=== PATIENT | male | born 1985 | race African-American/Black ===

== ENCOUNTER 2022-03-26 19:10 | Emergency (ER) | payer OTHER ==
[~2022-03-26] VITALS: Ht 180.3 cm; Wt 113.1 kg
[2022-03-26 22:00] LABS: BASO % 0.4 % (0.0-1.0); EOS # 0.3 10^3/uL (0.0-0.5); EOS % 2.8 % (0.0-3.0); LYMPH # 2.9 10^3/uL (1.5-5.0); LYMPH % 32.1 % (24.0-44.0); MEAN CORPUSCULAR HGB CONC 33.3 g/dl (32.0-36.5); MEAN CORPUSCULAR VOLUME 84.1 fl (80.0-96.0); MONO # 0.9 10^3/uL (0.0-0.8); MONO % 9.6 % (2.0-8.0); NEUTROPHILS # 4.9 10^3/uL (1.5-8.5); NEUTROPHILS % 54.5 % (36.0-66.0); PLATELET COUNT, AUTOMATED 269 10^3/uL (150-450); RED BLOOD COUNT 5.35 10^6/uL (4.30-6.10); WHITE BLOOD COUNT 8.9 10^3/uL (4.0-10.0)
[2022-03-26 22:20] LABS: BLOOD UREA NITROGEN 11 MG/DL (7-18); CALCIUM LEVEL 8.9 MG/DL (8.5-10.1); CARBON DIOXIDE LEVEL 28 MEQ/L (21-32); CHLORIDE LEVEL 108 MEQ/L (98-107); CREATININE FOR GFR 1.38 MG/DL (0.70-1.30); GLOMERULAR FILTRATION RATE > 60.0 (>60); GLUCOSE, FASTING 106 MG/DL (70-100); POTASSIUM SERUM 3.8 MEQ/L (3.5-5.1); SODIUM LEVEL 140 MEQ/L (136-145)
[2022-03-26 22:26] LABS: CPK CREATINE PHOSPHOKINASE 294 U/L (39-308); MB/CK RELATIVE INDEX 0.34 (< OR =4)
[2022-03-26 23:01] VITALS: BP 148/93
[2022-03-26 23:58] LABS: CK-MB VALUE MASS 1.1 NG/ML (<3.6); MB/CK RELATIVE INDEX 0.45 (< OR =4)
== END 2022-03-27 00:31 | disposition home or self-care (01) ==
LOC: M ED 19:10
DX: R07.9 Chest pain, unspecified (principal); Z87.820 Personal history of traumatic brain injury